=== PATIENT | male | born 1955 | race Two or more races ===

== ENCOUNTER 2020-03-20 20:12 | Emergency (ER) | payer OTHER ==
[~2020-03-20] VITALS: Ht 167.6 cm; Wt 70.3 kg
[2020-03-20] MEDS ORDERED: ZESTRIL20 MG (20:31)
[2020-03-20] MEDS ORDERED: ALDACTONE25 MG (20:31)
== END 2020-03-20 23:23 | disposition home or self-care (01) ==
LOC: ER 20:12
DX: T78.3XXA Angioneurotic edema, initial encounter (principal)